=== PATIENT | male | born 1990 | race Caucasian/White ===

== ENCOUNTER → 2020-10-20 | Outpatient (CLI) | payer OTHER ==
[~2020-10-20] MED LIST: AMBIEN10 MG PO; AUGMENTIN 875-1 EACH PO; BROMPHENIR-PSE118 ML PO; KLONOPIN0.5 MG PO; LEXAPRO20 MG PO; MULTI-VITAMIN1 EACH PO; NAPROSYN500 MG PO; PREDNISONE 20 M20 MG PO; PROTONIX 40 MG40 M1 PO; PROVENTIL HFA6.7 GM INH; VITAMIN D21250 MCG PO
[2020-10-21 07:11] LABS: COMPLEMENT C3, SERUM 94 mg/dL (82-167); COMPLEMENT C4, SERUM 23 mg/dL (12-38); RHEUMATOID ARTHRITIS FACTOR <10.0 IU/mL (0.0-13.9)
[2020-10-22 00:07] LABS: CCP ANTIBODIES IGG/IGA 1 units (0-19)
== END ==
LOC: LAB 11:36
PROVIDERS: Nurse Practitioner Family
DX: M25.50 Pain in unspecified joint (principal); R76.0 Raised antibody titer; R53.83 Other fatigue; D89.9 Disorder involving the immune mechanism, unspecified; R76.8 Other specified abnormal immunological findings in serum
CPT/HCPCS: 36415; 82550; 82728; 83520; 84439; 84443; 85652; 86140; 86160; 86162; 86200; 86431